=== PATIENT | female | born 1955 | race Caucasian/White ===

== ENCOUNTER 2025-02-05 10:09 | Emergency (ER) | payer OTHER ==
[2025-02-05 11:02] VITALS: BMI 16.5
[2025-02-05 11:30] LABS: ABSOLUTE IMMATURE GRANULOCYTES 0.08 x10^3/uL (0.0-0.031); BASOPHILS # 0.09 x10^3/uL (0.01-0.08); EOSINOPHIL % 0.7 % (0.7-5.8); EOSINOPHILS # 0.11 x10^3/uL (0.04-0.36); MCHC 31.5 g/dl (32.2-35.5); MEAN CELL VOLUME 85.7 fl (79.4-94.8); MEAN PLT VOLUME 9.1 fl (9.4-12.3); MONOCYTE # 1.34 x10^3/uL (0.24-0.86); MONOCYTE % 8.6 % (4.7-12.5); RDW 14.0 % (12.4-16.4)
[2025-02-05 11:35] LABS: BG HCT 28.0 % (32.4-45.2); VENOUS BASE EXCESS -1.6 mmol/L (-2-2); VENOUS O2 SATURATION 65.0 % (70-80); VENOUS PCO2 43.2 mmHg (38-52); VENOUS PH 7.359 (7.310-7.410)
[2025-02-05 11:42] LABS: INR 1.24 (0.83-1.09); PROTHROMBIN TIME (PATIENT) 13.5 SEC (9.7-13.0)
[2025-02-05 11:44] LABS: ACTIVATED PTT 29.1 SECONDS (25.2-36.5)
[2025-02-05 12:02] LABS: LACTIC ACID 3.1 mmol/L (0.4-2.0)
[2025-02-05] MEDS: SODIUM CHLORIDE 0.9% 500 ML INFUS.BAG IV ONE (12:15)
[2025-02-05] MEDS ORDERED: ACETAMINOPHEN INJECTION 100 ML ONE (12:36)
[2025-02-05 12:38] LABS: CO2 24.0 mmol/L (21-32); GLUCOSE,RANDOM 113.0 mg/dL (74-106)
[2025-02-05 12:42] LABS: CREATININE 0.9 mg/dL (0.55-1.3)
[2025-02-05 12:43] LABS: SGOT/AST 32.0 U/L (15-37); SGPT/ALT 13.0 U/L (13-61)
[2025-02-05 12:44] LABS: TOT PROT 8.1 g/dl (6.4-8.2)
[2025-02-05 12:45] LABS: ALK PHOS 115.0 U/L (45-117)
[2025-02-05] MEDS: TRANEXAMIC ACID 1000 MG/10 ML VIAL IVPUSH ONE (12:56)
[2025-02-05] MEDS: ACETAMINOPHEN 1000 MG/100 ML BAG IVPB ONE (13:03)
[2025-02-05 13:16] LABS: EPI CELLS 8 /uL (0-25.1); HYALINE CASTS 2 /uL (0-3.1); URINE APPEARANCE CLEAR; URINE BACTERIA 84 /uL (0-1359); URINE BILIRUBIN NEGATIVE (NEGATIVE); URINE COLOR YELLOW; URINE GLUCOSE (UA) NEGATIVE (NEGATIVE); URINE KETONE NEGATIVE (NEGATIVE); URINE LEUK ESTERASE TRACE (NEGATIVE); URINE NITRITE NEGATIVE (NEGATIVE); URINE PROTEIN NEGATIVE (NEGATIVE); URINE RBC 14 /uL (0-23.9); URINE UROBILINOGEN 0.2 mg/dL (0.2-1.0); URINE WBC 20 /uL (0-25.8)
[2025-02-05 13:29] LABS: URINE CRYSTALS PRESENT /hpf
[2025-02-05 13:33] LABS: LACTIC ACID 3.9 mmol/L (0.4-2.0)
[2025-02-05 13:58] VITALS: BP 94/65; PULSE 94; RESP 11
[2025-02-05 14:00] VITALS: TEMP 98.1
== END 2025-02-05 14:03 | disposition short-term general hospital (02) ==
LOC: JER 10:09
DX: R04.0 Epistaxis (principal); R00.0 Tachycardia, unspecified
CPT/HCPCS: 36415; 36430; 71045-TC-FY; 80053; 81003; 82803; 83605; 83735; 84484; 85025; 85610; 85730; 86922; 87040; 93005; 93010; 99291; P9038; P9058